=== PATIENT | male | born 2000 | race Caucasian/White ===

== ENCOUNTER 2020-06-19 18:53 | Emergency (ER) | payer BC ==
[~2020-06-19] VITALS: Ht 172.7 cm; Wt 65.9 kg
[2020-06-19 19:55] VITALS: TEMP 98.3
[2020-06-20] MEDS ORDERED: CLEOCIN HCL300 MG PO (00:43)
[2020-06-20 01:00] VITALS: BP 137/81; PULSE 105
== END 2020-06-20 01:00 | disposition home or self-care (01) ==
LOC: COL.ER 18:53 → EDBD 18:57 → COL.ER 06-20 01:00
DX: J34.89 Other specified disorders of nose and nasal sinuses (principal); S00.83XA Contusion of other part of head, initial encounter; Y04.2XXA Assault by strike against or bumped into by another person, initial encounter